=== PATIENT | male | born 1950 | race Caucasian/White ===

== ENCOUNTER 2021-09-10 01:49 | Inpatient (IN) ==
[2021-09-10] MEDS ORDERED: Naloxone 0.4 MG/ML INJ IVP PRN (04:34)
[2021-09-10] MEDS ORDERED: Ondansetron 4 MG/2 ML VIAL IVP PRN (04:34)
[2021-09-10] MEDS ORDERED: Perflutren Lipid Microsphere 1.3 ML in 0.9 % Sodium Chloride 8.7 ML IVP PRN (04:45)
[2021-09-10 05:46] LABS: Basophils # 0.1 K/mcL (0.0-0.2); Basophils % 0.8 %; Eosinophils # 0.1 K/mcL (0.0-0.6); Eosinophils % 1.1 %; Hematocrit 43.3 % (37.5-50.1); Hemoglobin 12.9 g/dL (12.9-16.9); Immature Granulocytes % 0.9 % (0-4); Lymphocytes # 1.1 K/mcL (0.6-4.6); Mean Corpuscular HGB Conc 29.8 g/dL (31.6-35.5); Mean Corpuscular Hemoglobin 27.3 pg (28.0-33.3); Mean Corpuscular Volume 91.7 fL (83.0-100.0); Mean Platelet Volume 9.4 fL (9.4-12.4); Monocytes # 1.5 K/mcL (0.0-1.3); Monocytes % 12.9 %; Neutrophils # 8.3 K/mcL (1.6-8.9); Platelet Count 343 K/mcL (140-400); Red Blood Count 4.72 M/mcL (4.19-5.50); Red Cell Distribution Width 17.4 % (11.5-14.5); Segmented Neutrophils % 74.3 %; White Blood Count 11.2 K/mcL (4.3-11.1)
[2021-09-10 05:46] LABS: Amorphous Sediment,Urine Few per hpf (None-Few); Bacteria,Urine Few per hpf (None-Few); Bilirubin,Urine Negative (Negative); Blood,Urine Negative (Negative); Clarity,Urine Turbid (Clear); Color,Urine Yellow (Yellow); Glucose,Urine (UA) Normal (Normal); Hyaline Casts,Urine Few per lpf (None Seen); Ketones,Urine Negative (Negative); Leukocyte Esterase,Urine Negative (Negative); Mucus,Urine Few per lpf (None-Few); Nitrite,Urine Negative (Negative); Protein,Urine 100 mg/dL (Neg-Trace); RBC,Urine 0-3 per hpf (0-3); Specific Gravity,Urine 1.013 (1.010-1.025); Squamous Epithelial Cell,Urine Few per hpf (None-Few); Urobilinogen,Urine Normal (Normal)
[2021-09-10 05:53] LABS: Prothrombin Time 33.2 Seconds (9.4-12.1)
[2021-09-10 05:54] LABS: Protein/Creatinine Ratio,Urine 1.62 mg/mg (0.00-0.20); Sodium, Urine 28.4 mEq/L
[2021-09-10 06:09] LABS: Calcium 8.7 mg/dL (8.6-10.3); Potassium 4.7 mEq/L (3.5-5.1)
[2021-09-10 06:15] LABS: Chol/HDL Ratio 3.3 (0-4.9); Magnesium 1.5 mg/dL (1.6-2.6); Troponin I 0.1 ng/mL (< 0.04)
[2021-09-10] MEDS: Bumetanide 1 MG/4 ML VIAL IVP SCH ×2 (08:49→16:52)
[2021-09-10] MEDS ORDERED: cephALEXin 500 MG CAPSULE PO ONE (09:41)
[2021-09-10] MEDS ORDERED: Nitroglycerin 0.4 MG TAB.SUBL SL PRN (14:17)
[2021-09-10] MEDS ORDERED: *HR* Buprenorphine HCl 8 MG TAB.SUBL SL PRN (14:30)
[2021-09-10] MEDS: Magnesium Oxide 400 MG TABLET PO SCH ×2 (15:12→21:50)
[2021-09-10] MEDS: Fluticasone Propionate Nasal 50 MCG/SPRAY BOTTLE NS SCH (15:12)
[2021-09-10] MEDS: Gabapentin 300 MG CAPSULE PO SCH ×2 (15:12→21:50)
[2021-09-10] MEDS: Warfarin perPT PO SCH (16:53)
[2021-09-10] MEDS ORDERED: *HR* Warfarin 7.5 MG TABLET PO ONE (18:00)
[2021-09-10] MEDS: rOPINIRole 1 MG TABLET PO SCH (21:49)
[2021-09-11 02:01] LABS: INR 2.7; Prothrombin Time 29.6 Seconds (9.4-12.1)
[2021-09-11] MEDS ORDERED: Ipratropium/Albuterol Neb 3 ML IH PRN (07:31)
[2021-09-11] MEDS: Gabapentin 300 MG CAPSULE PO SCH ×4 (08:17→20:28)
[2021-09-11] MEDS: Cholecalciferol (D-3) 1,000 UNIT (25MCG) TABLET PO SCH ×2 (08:17→08:59)
[2021-09-11] MEDS: Magnesium Oxide 400 MG TABLET PO SCH ×4 (08:17→20:28)
[2021-09-11] MEDS: Aspirin Enteric Coated 81 MG Tablet PO SCH ×2 (08:18→08:58)
[2021-09-11] MEDS: Bumetanide 1 MG/4 ML VIAL IVP SCH (08:18)
[2021-09-11] MEDS: rOPINIRole 1 MG TABLET PO SCH ×3 (08:18→20:28)
[2021-09-11] MEDS: Fluticasone Propionate Nasal 50 MCG/SPRAY BOTTLE NS SCH (08:18)
[2021-09-11] MEDS: (Alfuzosin Hcl [Uroxatral] 10 MG Tab.Er.24h) PO SCH (08:23)
[2021-09-11 08:38] LABS: Calcium 8.4 mg/dL (8.6-10.3); Potassium 5.7 mEq/L (3.5-5.1)
[2021-09-11 08:39] LABS: Magnesium 1.9 mg/dL (1.6-2.6); Phosphorous 7.6 mg/dL (2.7-4.5)
[2021-09-11 08:54] LABS: ABG Base Excess 1 mEq/L (-2 to 3); ABG HCO3 35 mEq/L (21-27); ABG Oxygen Saturation 93 % (95-98); ABG PCO2 110 mmHg (35-45); ABG PH 7.11 pH Units (7.32-7.45); ABG PO2 93 mmHg (85-104); ABG TCO2 38 mEq/L (20-26)
[2021-09-11 10:10] LABS: ABG Base Excess 2 mEq/L (-2 to 3); ABG HCO3 33 mEq/L (21-27); ABG Oxygen Saturation 94 % (95-98); ABG PCO2 95 mmHg (35-45); ABG PH 7.15 pH Units (7.32-7.45); ABG PO2 93 mmHg (85-104); ABG TCO2 36 mEq/L (20-26); Blood Gas Modality avaps
[2021-09-11 11:24] LABS: Albumin/Globulin Ratio 0.8 (1.1-2.2); Bilirubin,Direct 0.2 mg/dL (0.0-0.2); Bilirubin,Indirect 0.4 mg/dL (0.0-1.0); Bilirubin,Total 0.6 mg/dL (0.3-1.0); Globulin 3.9 g/dL (2.4-3.5); Total Protein 6.9 g/dL (6.4-8.9)
[2021-09-11 11:49] LABS: ABG Base Excess 2 mEq/L (-2 to 3); ABG HCO3 35 mEq/L (21-27); ABG Oxygen Saturation 93 % (95-98); ABG PCO2 102 mmHg (35-45); ABG PH 7.15 pH Units (7.32-7.45); ABG PO2 92 mmHg (85-104); ABG TCO2 38 mEq/L (20-26); Blood Gas Modality avaps; Blood Gas VT 550 cc
[2021-09-11] MEDS: Norepinephrine 4 MG/254 ML IV.SOLN IVC SCH ×4 (12:55→22:51)
[2021-09-11] MEDS ORDERED: Artificial Tears SOLN 15 ML BOTTLE BOTH EYES PRN (13:25)
[2021-09-11] MEDS: Furosemide 240 MG in 0.9 % Sodium Chloride 96 ML IVC SCH (15:20)
[2021-09-11] MEDS: Pantoprazole 40 MG VIAL IVP SCH (15:21)
[2021-09-11] MEDS: Artificial Tears SOLN 15 ML BOTTLE BOTH EYES SCH ×3 (16:00→23:23)
[2021-09-11] MEDS: Albumin 25% 25gram/100mL 25 GM/100 ML IV.SOLN IVPB SCH ×2 (16:05→23:23)
[2021-09-11 16:34] LABS: ABG Base Excess 1 mEq/L (-2 to 3); ABG HCO3 31 mEq/L (21-27); ABG Oxygen Saturation 92 % (95-98); ABG PCO2 78 mmHg (35-45); ABG PH 7.21 pH Units (7.32-7.45); ABG PO2 79 mmHg (85-104); ABG TCO2 34 mEq/L (20-26); Blood Gas Modality ASSIST CONTROL; Blood Gas VT 460 cc
[2021-09-11 17:01] LABS: Sodium, Urine 35.5 mEq/L
[2021-09-11] MEDS ORDERED: *HR* Warfarin 5 MG TABLET PO SCH (17:30)
[2021-09-11] MEDS ORDERED: *HR* Etomidate 20 MG/10 ML AMPUL IVP ONE (17:57)
[2021-09-11] MEDS ORDERED: *HR* Midazolam HCl 2 MG/2 ML VIAL IVP ONE (17:57)
[2021-09-11] MEDS ORDERED: *HR* Midazolam HCl 5 MG/5 ML VIAL IVP ONE (17:57)
[2021-09-11] MEDS ORDERED: *HR* Warfarin 5 MG TABLET PO ONE (18:00)
[2021-09-11] MEDS: FentaNYL (PF) 1,000 MCG/100 ML IV.SOLN IVC SCH (18:27)
[2021-09-11] MEDS: Warfarin perPT PO SCH (18:27)
[2021-09-11 18:43] LABS: ABG Base Excess 1 mEq/L (-2 to 3); ABG HCO3 31 mEq/L (21-27); ABG Oxygen Saturation 92 % (95-98); ABG PCO2 73 mmHg (35-45); ABG PH 7.23 pH Units (7.32-7.45); ABG PO2 77 mmHg (85-104); ABG TCO2 33 mEq/L (20-26); Blood Gas VT 460 cc
[2021-09-11 19:22] LABS: Calcium 8.6 mg/dL (8.6-10.3); Magnesium 1.9 mg/dL (1.6-2.6); Potassium 5.3 mEq/L (3.5-5.1)
[2021-09-11] MEDS: Chlorhexidine Rinse 15 ML MOUTHWASH MM SCH (20:14)
[2021-09-11] MEDS: Nystatin POWDER 30 GM BOTTLE TP SCH (20:29)
[2021-09-12] MEDS: Norepinephrine 4 MG/254 ML IV.SOLN IVC SCH ×5 (01:52→17:55)
[2021-09-12] MEDS: FentaNYL (PF) 1,000 MCG/100 ML IV.SOLN IVC SCH ×3 (01:52→21:18)
[2021-09-12] MEDS: Artificial Tears SOLN 15 ML BOTTLE BOTH EYES SCH ×6 (03:08→23:12)
[2021-09-12 04:12] LABS: Basophils # 0.1 K/mcL (0.0-0.2); Basophils % 0.5 %; Eosinophils # 0.3 K/mcL (0.0-0.6); Eosinophils % 2.1 %; Hematocrit 42.6 % (37.5-50.1); Hemoglobin 12.7 g/dL (12.9-16.9); Immature Granulocytes % 0.8 % (0-4); Lymphocytes # 1.2 K/mcL (0.6-4.6); Lymphocytes % 8.5 %; Mean Corpuscular HGB Conc 29.8 g/dL (31.6-35.5); Mean Corpuscular Hemoglobin 27.2 pg (28.0-33.3); Mean Corpuscular Volume 91.2 fL (83.0-100.0); Mean Platelet Volume 8.9 fL (9.4-12.4); Monocytes % 13.8 %; Neutrophils # 10.8 K/mcL (1.6-8.9); Platelet Count 379 K/mcL (140-400); Red Blood Count 4.67 M/mcL (4.19-5.50); Red Cell Distribution Width 17.5 % (11.5-14.5); Segmented Neutrophils % 74.3 %; White Blood Count 14.5 K/mcL (4.3-11.1)
[2021-09-12 04:22] LABS: INR 3.6; Prothrombin Time 39.9 Seconds (9.4-12.1)
[2021-09-12 04:43] LABS: ABG Base Excess 1 mEq/L (-2 to 3); ABG HCO3 30 mEq/L (21-27); ABG Oxygen Saturation 96 % (95-98); ABG PCO2 64 mmHg (35-45); ABG PH 7.28 pH Units (7.32-7.45); ABG PO2 95 mmHg (85-104); ABG TCO2 32 mEq/L (20-26); Blood Gas Modality ASSIST CONTROL; Blood Gas VT 460 cc
[2021-09-12 04:57] LABS: Calcium 8.6 mg/dL (8.6-10.3)
[2021-09-12] MEDS: Magnesium Oxide 400 MG TABLET PO SCH ×3 (07:36→19:48)
[2021-09-12] MEDS: Aspirin Enteric Coated 81 MG Tablet PO SCH (07:37)
[2021-09-12] MEDS: Pantoprazole 40 MG VIAL IVP SCH (07:37)
[2021-09-12] MEDS: Albumin 25% 25gram/100mL 25 GM/100 ML IV.SOLN IVPB SCH ×3 (07:37→23:11)
[2021-09-12] MEDS: Gabapentin 300 MG CAPSULE PO SCH ×3 (07:37→19:48)
[2021-09-12] MEDS: Chlorhexidine Rinse 15 ML MOUTHWASH MM SCH ×2 (07:37→19:47)
[2021-09-12] MEDS: Cholecalciferol (D-3) 1,000 UNIT (25MCG) TABLET PO SCH (07:37)
[2021-09-12] MEDS: rOPINIRole 1 MG TABLET PO SCH ×2 (07:37→19:48)
[2021-09-12] MEDS: (Alfuzosin Hcl [Uroxatral] 10 MG Tab.Er.24h) PO SCH (07:38)
[2021-09-12] MEDS: Fluticasone Propionate Nasal 50 MCG/SPRAY BOTTLE NS SCH (07:38)
[2021-09-12] MEDS: Nystatin POWDER 30 GM BOTTLE TP SCH ×2 (07:39→19:48)
[2021-09-12] MEDS ORDERED: Chlorothiazide Sodium 500 MG VIAL IVP ONE (08:32)
[2021-09-12] MEDS ORDERED: *HR* Atropine Sulfate 1 MG/10 ML SYRINGE ONE (09:21)
[2021-09-12] MEDS: Ampicillin/Sulbactam 1,500 MG in 0.9 % Sodium Chloride Mini Bag 100 ML IVPB SCH ×3 (12:12→23:11)
[2021-09-12] MEDS: Furosemide 240 MG in 0.9 % Sodium Chloride 96 ML IVC SCH (12:15)
[2021-09-12 16:38] LABS: ABG Base Excess 4 mEq/L (-2 to 3); ABG HCO3 30 mEq/L (21-27); ABG Oxygen Saturation 98 % (95-98); ABG PCO2 52 mmHg (35-45); ABG PH 7.38 pH Units (7.32-7.45); ABG PO2 107 mmHg (85-104); ABG TCO2 32 mEq/L (20-26); Blood Gas Modality ASSIST CONTROL; Blood Gas VT 460 cc
[2021-09-12] MEDS: Warfarin perPT PO SCH (17:22)
[2021-09-12] MEDS ORDERED: *HR* Warfarin 5 MG TABLET PO SCH (17:25)
[2021-09-12] MEDS ORDERED: Heparin 1,000 UNITS/500 mL 500 ML ONE (17:50)
[2021-09-12] MEDS ORDERED: 0.9 % Sodium Chloride 1,000 ML ONE ×2 (17:56→17:57)
[2021-09-13] MEDS: Artificial Tears SOLN 15 ML BOTTLE BOTH EYES SCH ×5 (03:11→21:27)
[2021-09-13] MEDS: Norepinephrine 4 MG/254 ML IV.SOLN IVC SCH ×3 (03:50→15:54)
[2021-09-13 03:56] LABS: Basophils % 0.4 %; Eosinophils # 0.3 K/mcL (0.0-0.6); Eosinophils % 2.5 %; Hematocrit 37.5 % (37.5-50.1); Hemoglobin 11.8 g/dL (12.9-16.9); Immature Granulocytes % 0.5 % (0-4); Lymphocytes # 0.8 K/mcL (0.6-4.6); Lymphocytes % 7.3 %; Mean Corpuscular HGB Conc 31.5 g/dL (31.6-35.5); Mean Corpuscular Hemoglobin 27.4 pg (28.0-33.3); Monocytes # 1.1 K/mcL (0.0-1.3); Monocytes % 10.9 %; Platelet Count 312 K/mcL (140-400); Red Blood Count 4.31 M/mcL (4.19-5.50); Red Cell Distribution Width 17.4 % (11.5-14.5); Segmented Neutrophils % 78.4 %; White Blood Count 10.2 K/mcL (4.3-11.1)
[2021-09-13 04:14] LABS: Calcium 8.8 mg/dL (8.6-10.3); Potassium 4.1 mEq/L (3.5-5.1)
[2021-09-13 04:19] LABS: Prothrombin Time 60.5 Seconds (9.4-12.1)
[2021-09-13 04:21] LABS: INR 5.5
[2021-09-13 04:39] LABS: ABG Base Excess 7 mEq/L (-2 to 3); ABG HCO3 33 mEq/L (21-27); ABG Oxygen Saturation 96 % (95-98); ABG PCO2 51 mmHg (35-45); ABG PH 7.42 pH Units (7.32-7.45); ABG PO2 81 mmHg (85-104); ABG TCO2 34 mEq/L (20-26); Blood Gas Modality ASSIST CONTROL; Blood Gas VT 460 cc
[2021-09-13] MEDS: Ampicillin/Sulbactam 1,500 MG in 0.9 % Sodium Chloride Mini Bag 100 ML IVPB SCH ×3 (05:19→18:07)
[2021-09-13] MEDS: FentaNYL (PF) 1,000 MCG/100 ML IV.SOLN IVC SCH ×3 (05:53→22:00)
[2021-09-13] MEDS: Fluticasone Propionate Nasal 50 MCG/SPRAY BOTTLE NS SCH (07:15)
[2021-09-13] MEDS: (Alfuzosin Hcl [Uroxatral] 10 MG Tab.Er.24h) PO SCH (07:15)
[2021-09-13] MEDS: Aspirin Enteric Coated 81 MG Tablet PO SCH (07:15)
[2021-09-13] MEDS: Gabapentin 300 MG CAPSULE PO SCH ×3 (07:22→21:28)
[2021-09-13] MEDS: Cholecalciferol (D-3) 1,000 UNIT (25MCG) TABLET PO SCH (07:22)
[2021-09-13] MEDS: rOPINIRole 1 MG TABLET PO SCH ×2 (07:23→21:28)
[2021-09-13] MEDS: Albumin 25% 25gram/100mL 25 GM/100 ML IV.SOLN IVPB SCH ×2 (07:23→16:14)
[2021-09-13] MEDS: Magnesium Oxide 400 MG TABLET PO SCH ×3 (07:23→21:28)
[2021-09-13] MEDS: Pantoprazole 40 MG VIAL IVP SCH (07:23)
[2021-09-13] MEDS: Chlorhexidine Rinse 15 ML MOUTHWASH MM SCH ×2 (07:23→21:27)
[2021-09-13] MEDS: Nystatin POWDER 30 GM BOTTLE TP SCH ×2 (07:24→21:28)
[2021-09-13] MEDS ORDERED: Chlorothiazide Sodium 500 MG VIAL IVP ONE (09:19)
[2021-09-13] MEDS: Warfarin perPT PO SCH (18:05)
[2021-09-14] MEDS: Artificial Tears SOLN 15 ML BOTTLE BOTH EYES SCH ×7 (00:54→23:38)
[2021-09-14] MEDS: Ampicillin/Sulbactam 1,500 MG in 0.9 % Sodium Chloride Mini Bag 100 ML IVPB SCH ×5 (00:54→23:36)
[2021-09-14] MEDS: Furosemide 240 MG in 0.9 % Sodium Chloride 96 ML IVC SCH ×3 (03:37→17:36)
[2021-09-14] MEDS: Norepinephrine 4 MG/254 ML IV.SOLN IVC SCH ×2 (03:43→17:39)
[2021-09-14 03:55] LABS: ABG Base Excess 13 mEq/L (-2 to 3); ABG HCO3 37 mEq/L (21-27); ABG Oxygen Saturation 94 % (95-98); ABG PCO2 42 mmHg (35-45); ABG PH 7.54 pH Units (7.32-7.45); ABG PO2 63 mmHg (85-104); ABG TCO2 38 mEq/L (20-26); Blood Gas VT 460 cc
[2021-09-14 05:00] LABS: Urine Collection Volume NOT PROVIDED mL
[2021-09-14 05:10] LABS: Basophils % 0.3 %; Eosinophils # 0.2 K/mcL (0.0-0.6); Eosinophils % 1.7 %; Hematocrit 37.6 % (37.5-50.1); Hemoglobin 11.7 g/dL (12.9-16.9); Immature Granulocytes % 0.8 % (0-4); Lymphocytes % 7.8 %; Mean Corpuscular HGB Conc 31.1 g/dL (31.6-35.5); Mean Corpuscular Hemoglobin 27.3 pg (28.0-33.3); Mean Corpuscular Volume 87.9 fL (83.0-100.0); Mean Platelet Volume 9.1 fL (9.4-12.4); Monocytes # 1.1 K/mcL (0.0-1.3); Monocytes % 8.8 %; Neutrophils # 10.3 K/mcL (1.6-8.9); Platelet Count 306 K/mcL (140-400); Red Blood Count 4.28 M/mcL (4.19-5.50); Red Cell Distribution Width 17.8 % (11.5-14.5); Segmented Neutrophils % 80.6 %; White Blood Count 12.8 K/mcL (4.3-11.1)
[2021-09-14 05:17] LABS: Calcium 9.2 mg/dL (8.6-10.3); Potassium 3.4 mEq/L (3.5-5.1)
[2021-09-14 05:42] LABS: INR 4.4
[2021-09-14 05:43] LABS: Prothrombin Time 48.4 Seconds (9.4-12.1)
[2021-09-14] MEDS: (Alfuzosin Hcl [Uroxatral] 10 MG Tab.Er.24h) PO SCH (07:21)
[2021-09-14] MEDS: Aspirin Enteric Coated 81 MG Tablet PO SCH (07:21)
[2021-09-14 07:54] LABS: ANA IgG by ELISA NONE DETECTED (None Detected)
[2021-09-14] MEDS: Magnesium Oxide 400 MG TABLET PO SCH ×3 (07:59→20:10)
[2021-09-14] MEDS: Gabapentin 300 MG CAPSULE PO SCH ×3 (07:59→20:10)
[2021-09-14] MEDS: Cholecalciferol (D-3) 1,000 UNIT (25MCG) TABLET PO SCH (08:01)
[2021-09-14] MEDS: Chlorhexidine Rinse 15 ML MOUTHWASH MM SCH ×2 (08:01→20:10)
[2021-09-14] MEDS: rOPINIRole 1 MG TABLET PO SCH ×2 (08:01→20:11)
[2021-09-14] MEDS: Nystatin POWDER 30 GM BOTTLE TP SCH ×2 (08:02→20:10)
[2021-09-14] MEDS: Pantoprazole 40 MG VIAL IVP SCH (08:02)
[2021-09-14] MEDS: Fluticasone Propionate Nasal 50 MCG/SPRAY BOTTLE NS SCH (08:04)
[2021-09-14] MEDS: FentaNYL (PF) 1,000 MCG/100 ML IV.SOLN IVC SCH ×2 (08:15→17:38)
[2021-09-14] MEDS ORDERED: *HR* Phytonadione 5 MG TABLET PO ONE (09:25)
[2021-09-14] MEDS ORDERED: Calcium Gluconate 1gm/50mL 1 GM/50 ML BAG IVPB PRN (09:29)
[2021-09-14 10:36] LABS: Magnesium 1.5 mg/dL (1.6-2.6); Phosphorous 3.1 mg/dL (2.7-4.5); Potassium 3.4 mEq/L (3.5-5.1)
[2021-09-14] MEDS ORDERED: *HR* Heparin 5,000 UNIT/ML VIAL IVP PRN ×2 (10:52)
[2021-09-14] MEDS: Potassium Chloride 40 MEQ/200 ML BAG IVPB PRN ×2 (10:58→18:20)
[2021-09-14] MEDS: Heparin 25,000UNIT/250ML 1/2NS 25,000 UNIT/250 ML IV.SOLN IVC SCH ×2 (11:34→23:37)
[2021-09-14] MEDS ORDERED: Artificial Tears SOLN 15 ML BOTTLE BOTH EYES PRN (11:56)
[2021-09-14] MEDS ORDERED: Chlorhexidine Rinse 15 ML MOUTHWASH MM SCH (12:00)
[2021-09-14] MEDS ORDERED: Artificial Tears SOLN 15 ML BOTTLE BOTH EYES SCH (12:00)
[2021-09-14 12:07] LABS: Hemoglobin 11.7 g/dL (12.9-16.9); Mean Corpuscular HGB Conc 30.8 g/dL (31.6-35.5); Mean Corpuscular Hemoglobin 27.2 pg (28.0-33.3); Mean Corpuscular Volume 88.4 fL (83.0-100.0); Platelet Count 301 K/mcL (140-400); Red Cell Distribution Width 17.6 % (11.5-14.5); White Blood Count 11.4 K/mcL (4.3-11.1)
[2021-09-14 12:11] LABS: Heparin anti-factor XA UFH < 0.04 IU/mL (0.30-0.70)
[2021-09-14 12:12] LABS: INR 3.8; Prothrombin Time 41.7 Seconds (9.4-12.1)
[2021-09-14 18:03] LABS: Magnesium 1.7 mg/dL (1.6-2.6); Potassium 3.4 mEq/L (3.5-5.1)
[2021-09-14] MEDS ORDERED: Dextrose 4 GM Chewable Tablets PO PRN ×2 (23:31)
[2021-09-14] MEDS ORDERED: D5% in Water 1,000 ML IVC PRN (23:31)
[2021-09-14] MEDS ORDERED: *HR* Dextrose 50 % in Water (Syg) 50 ML SYRINGE ONE (23:35)
[2021-09-14] MEDS: *HR* Dextrose 50 % in Water (Syg) 50 ML SYRINGE IVP PRN ×2 (23:37→23:48)
[2021-09-14] MEDS: Insulin LISPRO 300 UNITS/3 ML VIAL SUBQ SCH (23:38)
[2021-09-15] MEDS: Artificial Tears SOLN 15 ML BOTTLE BOTH EYES SCH ×3 (03:21→12:10)
[2021-09-15] MEDS: FentaNYL (PF) 1,000 MCG/100 ML IV.SOLN IVC SCH ×2 (03:23→09:55)
[2021-09-15 03:49] LABS: Basophils % 0.4 %; Eosinophils # 0.2 K/mcL (0.0-0.6); Eosinophils % 2.2 %; Hematocrit 37.3 % (37.5-50.1); Hemoglobin 11.5 g/dL (12.9-16.9); Immature Granulocytes % 0.5 % (0-4); Lymphocytes # 0.9 K/mcL (0.6-4.6); Mean Corpuscular HGB Conc 30.8 g/dL (31.6-35.5); Mean Corpuscular Hemoglobin 27.2 pg (28.0-33.3); Mean Corpuscular Volume 88.2 fL (83.0-100.0); Mean Platelet Volume 8.6 fL (9.4-12.4); Neutrophils # 7.4 K/mcL (1.6-8.9); Platelet Count 281 K/mcL (140-400); Red Blood Count 4.23 M/mcL (4.19-5.50); Red Cell Distribution Width 17.8 % (11.5-14.5); Segmented Neutrophils % 77.9 %; White Blood Count 9.5 K/mcL (4.3-11.1)
[2021-09-15 03:57] LABS: INR 2.9; Prothrombin Time 32.6 Seconds (9.4-12.1)
[2021-09-15 04:04] LABS: VBG Ionized Calcium 1.06 mmol/L (1.15-1.35)
[2021-09-15 04:14] LABS: Albumin 3.3 g/dL (3.5-5.7); Albumin/Globulin Ratio 1.1 (1.1-2.2); Bilirubin,Direct 0.5 mg/dL (0.0-0.2); Bilirubin,Indirect 0.6 mg/dL (0.0-1.0); Bilirubin,Total 1.1 mg/dL (0.3-1.0); Calcium 8.8 mg/dL (8.6-10.3); Globulin 3.1 g/dL (2.4-3.5); Magnesium 2.1 mg/dL (1.6-2.6); Phosphorous 3.3 mg/dL (2.7-4.5); Potassium 3.7 mEq/L (3.5-5.1); Total Protein 6.4 g/dL (6.4-8.9)
[2021-09-15 05:11] LABS: ABG Base Excess 10 mEq/L (-2 to 3); ABG HCO3 33 mEq/L (21-27); ABG Oxygen Saturation 98 % (95-98); ABG PCO2 40 mmHg (35-45); ABG PH 7.53 pH Units (7.32-7.45); ABG PO2 87 mmHg (85-104); ABG TCO2 34 mEq/L (20-26); Blood Gas Modality ASSIST CONTROL; Blood Gas VT 460 cc
[2021-09-15] MEDS: Insulin LISPRO 300 UNITS/3 ML VIAL SUBQ SCH ×2 (06:08→11:56)
[2021-09-15] MEDS: Ampicillin/Sulbactam 1,500 MG in 0.9 % Sodium Chloride Mini Bag 100 ML IVPB SCH ×2 (06:09→12:10)
[2021-09-15] MEDS: Potassium Chloride 40 MEQ/200 ML BAG IVPB PRN (06:09)
[2021-09-15] MEDS: *HR* Dextrose 50 % in Water (Syg) 50 ML SYRINGE IVP PRN (06:10)
[2021-09-15 08:03] LABS: Alpha 2 Globulin (PEP) 0.67 g/dL (0.48-1.05); Beta Globulin (PEP) 1.25 g/dL (0.48-1.10)
[2021-09-15] MEDS: Magnesium Oxide 400 MG TABLET PO SCH (08:32)
[2021-09-15] MEDS: rOPINIRole 1 MG TABLET PO SCH (08:32)
[2021-09-15] MEDS: Gabapentin 300 MG CAPSULE PO SCH (08:32)
[2021-09-15] MEDS: Chlorhexidine Rinse 15 ML MOUTHWASH MM SCH (08:32)
[2021-09-15] MEDS: Cholecalciferol (D-3) 1,000 UNIT (25MCG) TABLET PO SCH (08:32)
[2021-09-15] MEDS: Pantoprazole 40 MG VIAL IVP SCH (08:32)
[2021-09-15] MEDS: Aspirin Enteric Coated 81 MG Tablet PO SCH (08:33)
[2021-09-15] MEDS: Nystatin POWDER 30 GM BOTTLE TP SCH (08:33)
[2021-09-15] MEDS: Fluticasone Propionate Nasal 50 MCG/SPRAY BOTTLE NS SCH (08:33)
[2021-09-15] MEDS: Heparin 25,000UNIT/250ML 1/2NS 25,000 UNIT/250 ML IV.SOLN IVC SCH (09:55)
[2021-09-15] MEDS ORDERED: acetaZOLAMIDE 375 MG in Water for inj. (sterile) 3.75 ML IVP ONE (09:59)
[2021-09-15 10:51] LABS: Kappa Qnt Free Light Chains 148.04 mg/L (3.30-19.40); Lambda Qnt Free Light Chains 75.23 mg/L (5.71-26.30)
[2021-09-15 10:57] LABS: IFE Reflexed NOT DONE
[2021-09-15 12:35] LABS: VBG Ionized Calcium 1.09 mmol/L (1.15-1.35)
[2021-09-15] MEDS ORDERED: *HR* LORazepam 2 MG/ML VIAL IVP PRN (13:07)
[2021-09-15 16:26] VITALS: BP 82/55; PULSE 74; TEMP 100; O2SAT 68
== END 2021-09-15 18:12 | disposition expired | DRG 291 ==
LOC: 2ANU → SUATTDRO 04:24 → ICNU 09-11 11:32
PROVIDERS: ADMIT Internal Medicine; ATTEND Internal Medicine